=== PATIENT | female | born 2000 | race Caucasian/White ===

== ENCOUNTER 2018-04-02 15:00 | Emergency (ER) | payer BC, OTHER ==
--- NOTE | 2018-04-02 15:16 | EDM.PDOC ---
ED HPI GENERAL MEDICAL PROBLEM - General Chief Complaint: TECHNICAL ASSISTANCE CONSULTANT Problem Stated Complaint: PT SPOKE TO NURSE Time Seen by Provider: 04/02/18 15:07 - History of Present Illness INITIAL COMMENTS - FREE TEXT/NARRATIVE: HISTORY AND PHYSICAL: History of present illness: The patient is a 18-year-old female who is a one para 0 and presents with complaints of heavy vaginal bleeding that started approximately 2-1/2 hours ago requiring 3 pads. According to the patient she had a that was not progressing and had medication placed intravaginally, Cytotec, at [facility] on Friday. She was told that she would start bleeding heavily about 12 hours afterwards and she says that about 6 hours after the insertion of the medications she started having heavy bleeding with clots that lasted about 2 hours. She said that it then tapered off and Friday and Friday it was a light period which was very much like she was told it was going to progress. Today in the morning she had a normal day and then a 2-1/2 hours ago she started bleeding more heavily and having a lot of cramping. She has tried axpm-jyl-[id number] meds for the pain and says they are not working. She has felt lightheaded today but has no issues with passing out or blacking out and no chest pain shortness of breath fevers chills or other systemic complaints. She's concerned because she was told that all of the heavy bleeding should've happened on the first 24 hours and it has started to recur. She did not contact her provider at [facility] before coming here. Review of systems: As per history of present illness and below otherwise all systems reviewed and negative. Past medical history: As per history of present illness and as reviewed below otherwise noncontributory. Surgical history: As per history of present illness and as reviewed below otherwise noncontributory. Social history: No reported history of drug or alcohol abuse. Family history: As per history of present illness and as reviewed below otherwise noncontributory. Physical exam: General: Well-developed well-nourished petite female who is nontoxic and vital signs are reviewed by me. Patient is slightly tachycardic at 109 HEENT: Atraumatic, normocephalic, negative for conjunctival pallor or scleral icterus, mucous membranes moist, throat clear, neck supple, nontender, trachea midline. Lungs: Clear to auscultation, breath sounds equal bilaterally, chest nontender. Heart: S1S2, regular rhythm and slightly tachycardic rate on my evaluation no overt murmurs Abdomen: Soft, nondistended, minimal tenderness suprapubically without rebound or guarding NABS Negative for costovertebral tenderness. Pelvis: Deferred Genitourinary: External genitalia are within normal limits and upon placement of the speculum a copious amount of blood and some clots are visualized and after evacuation of this the cervix can be seen which has a steady trickle per os and a small clot at the os and is fingertip. The uterus is small and bulky approximately 6-8 weeks size and there is no adnexal tenderness Rectal: Deferred. Extremities: Atraumatic, negative for cords or calf pain. Neurovascular unremarkable. Neuro: Awake, alert, oriented. Cranial nerves II through XII unremarkable. Cerebellum unremarkable. Motor and sensory unremarkable throughout. Exam nonfocal. Diagnostics: CBC serum quantitative hCG pelvic ultrasound The patient's blood type is documented in the computer as A+ [employer]: IV fluids Toradol Please note that the patient's prior serum quantitative hCGs have been reviewed by me on March 17 of March 19 and March 26 with the last one being [phone] This case was discussed with Dr. brownlee at 1520 8 PM and she would like a repeat quantitative hCG and the pelvic ultrasound for retained products to be performed and to be recontacted 1737: Dr Brownlee was recontacted with testing results and would like me to give the patient a prescription for Methergine 0.2 mg every 6 hours for 4 doses and to call and schedule a follow-up appointment in the clinic. I advised the patient to push hydration rest and reasons to return to the ED Heart rate has improved with IV fluid hydration Impression: Continued vaginal bleeding post Cytotec stable Definitive disposition and diagnosis as appropriate pending reevaluation and review of above. Lower Abdomen Pain Score (Numeric/FACES): 8 - Related Data Allergies Allergy/AdvReac Type Severity Reaction Status Date / Time morphine Allergy Vomiting Verified 04/02/18 15:05 Home Meds: Home Meds . [No Known Home Meds] 09/27/15 [History] Vit #108/Iron/FA [ One Tablet] 1 tab DAILY 04/02/18 [History] Past Medical History Respiratory History: Reports: Asthma TECHNICAL ASSISTANCE CONSULTANT History: Reports: Other (See Below) Other TECHNICAL ASSISTANCE CONSULTANT History: false Psychiatric History: Reports: Anxiety - Past Surgical History HEENT Surgical History: Reports: Tonsillectomy Oncologic Surgical History: Reports: Other (See Below) Social & Family History - Family History Family Medical History: Noncontributory - Tobacco Use Smoking Status *Q: Never Smoker - Caffeine Use Caffeine Use: Reports: None - Recreational Drug Use Recreational Drug Use: No - Living Situation & Occupation Living situation: Reports: Single Occupation: Employed ED ROS GENERAL - Review of Systems Review Of Systems: ROS reveals no pertinent complaints other than HPI. ED EXAM, GENERAL - Physical Exam Exam: See Below (See dictation) Course - Vital Signs Last Recorded V/S: Last Vital Signs Temp 37.1 C 04/02/18 16:47 Pulse 94 04/02/18 16:47 Resp 18 04/02/18 16:47 BP 106/63 04/02/18 16:47 Pulse Ox 99 04/02/18 16:47 - Orders/Labs/Meds Orders: Active Orders 24 hr Category Date Time Status Transvaginal Non OB [US] Stat Exams 04/02/18 15:31 Taken Sodium Chloride 0.9% [Saline Flush] Med 04/02/18 15:30 Active 10 ml FLUSH ASDIRECTED PRN Sodium Chloride 0.9% [Saline Flush] Med 04/02/18 15:30 Active 2.5 ml FLUSH ASDIRECTED PRN Saline Lock Insert [OM.PC] Stat Oth 04/02/18 15:30 Ordered Medication Orders Sodium Chloride (Saline Flush) 10 ml FLUSH ASDIRECTED PRN PRN Reason: Keep Vein Open Sodium Chloride (Saline Flush) 2.5 ml FLUSH ASDIRECTED PRN PRN Reason: Keep Vein Open Labs: Laboratory Tests 04/02/18 04/02/18 Range/Units 16:20 16:20 WBC 7.78 (4.0-11.0) K/uL RBC 3.83 L (4.30-5.90) M/uL Hgb 11.3 L (12.0-16.0) g/dL Hct 33.1 L (36.0-46.0) % MCV 86.4 (80.0-98.0) fL MCH 29.5 (27.0-32.0) pg MCHC 34.1 (31.0-37.0) g/dL RDW Std Deviation 41.0 (28.0-62.0) fl RDW Coeff of Sameer 13 (11.0-15.0) % Plt Count 204 (150-400) K/uL MPV 12.80 H (7.40-12.00) fL Neut % (Auto) 63.3 (48.0-80.0) % Lymph % (Auto) 28.0 (16.0-40.0) % Harnett % (Auto) 6.2 (0.0-15.0) % Eos % (Auto) 2.2 (0.0-7.0) % Baso % (Auto) 0.3 (0.0-1.5) % Neut # (Auto) 4.9 (1.4-5.7) K/uL Lymph # (Auto) 2.2 (0.6-2.4) K/uL Harnett # (Auto) 0.5 (0.0-0.8) K/uL Eos # (Auto) 0.2 (0.0-0.7) K/uL Baso # (Auto) 0.0 (0.0-0.1) K/uL Nucleated RBC % 0.0 /100WBC Nucleated RBCs # 0 K/uL HCG, Quant 4691.0 mIU/mL Meds: Medications Generic Name Dose Route Start Last Admin Trade Name Freq PRN Reason Stop Dose Admin Sodium Chloride 10 ml 04/02/18 15:30 Saline Flush FLUSH ASDIRECTED PRN Keep Vein Open Sodium Chloride 2.5 ml 04/02/18 15:30 Saline Flush FLUSH ASDIRECTED PRN Keep Vein Open Discontinued Medications Generic Name Dose Route Start Last Admin Trade Name Freq PRN Reason Stop Dose Admin Sodium Chloride 1,000 mls @ 999 mls/hr 04/02/18 15:36 04/02/18 16:18 Normal Saline IV 04/02/18 16:36 999 mls/hr STAT ONE Administration Ketorolac Tromethamine 30 mg 04/02/18 15:31 04/02/18 16:18 Toradol IVPUSH 04/02/18 15:32 30 mg ONETIME ONE Administration Departure - Departure Time of Disposition: 17:43 Disposition: Home, Self-Care 01 Condition: Good Clinical Impression: Vaginal bleeding - Discharge Information Referrals: PCP,None [Primary Care Provider] - Forms: ED Department Discharge Additional Instructions: The following information is given to patients seen in the emergency department who are being discharged to home. This information is to outline your options for follow-up care. We provide all patients seen in our emergency department with a follow-up referral. The need for follow-up, as well as the timing and circumstances, are variable depending upon the specifics of your emergency department visit. If you don't have a primary care physician on staff, we will provide you with a referral. We always advise you to contact your personal physician following an emergency department visit to inform them of the circumstance of the visit and for follow-up with them and/or the need for any referrals to a consulting specialist. The emergency department will also refer you to a specialist when appropriate. This referral assures that you have the opportunity for followup care with a specialist. All of these measure are taken in an effort to provide you with optimal care, which includes your followup. Under all circumstances we always encourage you to contact your private physician who remains a resource for coordinating your care. When calling for followup care, please make the office aware that this follow-up is from your recent emergency room visit. If for any reason you are refused follow-up, please contact the [facility] emergency department at and ask to speak to the emergency department charge nurse. [facility]'s [address] [address] Please fill the prescription for Methergine that you have been given and take as directed. Expect heavy blood flow and some clots during the taking of this medication which should taper off. These contact her provider in the clinic at [facility] for further care and evaluation and return to ER as needed and as discussed - My Orders Last 24 Hours: My Active Orders 04/02/18 15:30 Sodium Chloride 0.9% [Saline Flush] 10 ml FLUSH ASDIRECTED PRN Sodium Chloride 0.9% [Saline Flush] 2.5 ml FLUSH ASDIRECTED PRN Saline Lock Insert [OM.PC] Stat 04/02/18 15:31 Transvaginal Non OB [US] Stat - Assessment/Plan Last 24 Hours: My Active Orders 04/02/18 15:30 Sodium Chloride 0.9% [Saline Flush] 10 ml FLUSH ASDIRECTED PRN Sodium Chloride 0.9% [Saline Flush] 2.5 ml FLUSH ASDIRECTED PRN Saline Lock Insert [OM.PC] Stat 04/02/18 15:31 Transvaginal Non OB [US] Stat
[2018-04-02] MEDS ORDERED: Sodium Chloride 0.9% 10 ML Syringe FLUSH PRN (15:30)
[2018-04-02] MEDS ORDERED: Sodium Chloride 0.9% 2.5 ML Syringe FLUSH PRN (15:30)
[2018-04-02] MEDS ORDERED: Ketorolac 30 MG/ML SDV IVPUSH ONE (15:31)
[2018-04-02] MEDS ORDERED: Sodium Chloride 0.9% 1,000 ML IV ONE (15:36)
[2018-04-02 16:48] VITALS: BP 106/63
--- NOTE | 2018-04-03 20:19 | US ---
EXAM DATE: 04/02/18 PATIENT'S AGE: 18 Patient: VAHID RAMOS Facility: [place], [place] Site . Site : 2000 Study: US Pelvis [id number] 4:16:16 PM Ordering Physician: Shante Odom Final Report: INDICATION: Bleeding following procedure. COMPARISON: None. TECHNIQUE: Transvaginal evaluation only. FINDINGS: Focal area which is heterogeneous in echotexture with debris which most likely reflects reflect a clot is noted in the lower uterine segment measuring 1.1 x 4.1 cm. The endometrium is thickened and heterogeneous. The ovaries are unremarkable. IMPRESSION: Probable clot in lower uterine segment. Dictated by Jackie Carson MD @ Apr 02 2018 4:39PM (Electronic Signature) Report Signed by Proxy. SHRAVAN
== END 2018-04-02 18:01 | disposition home or self-care (01) ==
LOC: MW.ED 15:00
DX: O46.90 Antepartum hemorrhage, unspecified, unspecified trimester (principal); Z88.5 Allergy status to narcotic agent; Z79.899 Other long term (current) drug therapy
CPT/HCPCS: 36415; 76830; 84702; 85025; 96361; 96374; 99284; J1885; J7040; 99283

== ENCOUNTER 2018-04-09 17:09 | Observation (INO) | payer BC, OTHER ==
[2018-04-09] MEDS ORDERED: Sodium Chloride 0.9% 2.5 ML Syringe FLUSH PRN (17:34)
[2018-04-09] MEDS ORDERED: Sodium Chloride 0.9% 10 ML Syringe FLUSH PRN (17:34)
[2018-04-09] MEDS ORDERED: Sodium Chloride 0.9% 1,000 ML IV ONE ×2 (17:35→18:35)
--- NOTE | 2018-04-09 17:52 | EDM.PDOC ---
ED HPI GENERAL MEDICAL PROBLEM - General Source of Information: Reports: Patient, Family History Limitations: Reports: No Limitations - History of Present Illness Onset: Today, Sudden Duration: Day(s): Location: Reports: Pelvis Quality: Reports: Ache, Same as Previous Episode Severity: Moderate Improves with: Reports: None Worsens with: Reports: None Associated Symptoms: Reports: No Other Symptoms, Weakness no pain Pain Score (Numeric/FACES): 0 - General Chief Complaint: [employer] Problem Stated Complaint: THINKS SHE HAD A CEIZER AT WORK Time Seen by Provider: 04/09/18 17:45 - History of Present Illness INITIAL COMMENTS - FREE TEXT/NARRATIVE: Dr. Frey dictating an addendum note as I'm familiar with this case and I saw this patient last week. I agree with history and physical as above and the patient that she was doing well until today when she started bleeding and had what sounds like a fainting/vasovagal event. On my evaluation there is tissue at the os which is very here and and is difficult to remove without significant traction. Dr Lawrence will come and evaluate the patient for further care. (Ilene Frey) HISTORY AND PHYSICAL: []18-year-old female presenting with concerns over passing out History of Present Illness: []1 week ago patient was in the emergency department after having received Cytotec in the [employer]EL [employer]END[employer] office. Bleeding had occurred for the last 24 hours then slowed down she returned because of increased bleeding. Patient was given Methergine and did take this medication through yesterday. Today when she was at work about 2:00 she noticed increased bleeding again. And called her mother for 4:43 pm after this she was found on the floor and increased bleeding. Patient was brought back to the examination room when she sat on the wheelchair there was "a gush of blood". Her mother cleaned up the wheelchair before was seen by any staff. Review of Systems: As per history of present illness and below otherwise all systems reviewed and negative. Past medical history: As per history of present illness and as reviewed below otherwise noncontributory. Surgical history: As per history of present illness and as reviewed below otherwise noncontributory. Social history: No reported history of drug or alcohol abuse. Family history: As per history of present illness and as reviewed below otherwise noncontributory. Physical exam: Alert and oriented female answering questions appropriately in full sentences without any shortness of breath. She walked to the bathroom and urinated. A sample was obtained. He is nontoxic in appearance. HEENT: Atraumatic, normocehpalic, pupils reactive, negative for conjunctival pallor or scleral icterus, mucous membranes moist, throat clear, neck supple, nontender, trachea midline. Lungs: Clear to auscultation, breath sounds equal bilaterally, chest non tender. Heart: S1S2, regular, negative for clicks, rubs, or JVD. Abdomen: Soft, nondistended, nontender. Negative for masses or hepatossplenmegaly. Negative for costovertebral tenderness. Pelvis: Stable nontender. Genitourinary: Deferred. Rectal: Deferred Extremities: Atraumatic, negative for cords or calf pain. Neurovascular unremarkable. Neuro: Awake, alert, oriented. Cranial nerves II through XII unremarkable. Cerebellum unremarkable. Motor and sensory unremarkable throughout. Exam nonfocal. Pelvic examination several clots were evacuated from the vaginal vault the oss , of the cervix has contents present a small amount removed with ring forceps however there is quite a bit of tension. Dr. Frey is at bedside and was unable to remove the tissue. Dr. Lawrence has been notified of this patient. Dr. Frey has given report to Dr. Lawrence. Dr. Lawrence has examined the patient and evacuated some of the contents, an us obtained and reviewed by Dr. Lawrence who has asked for OR crew to be contacted for a D & C. Diagnostics: []cbc, cmp, ua, urine culture, prolactin, hcg quantitative Therapeutics: []IV fluid Impression: []Retained products of conception Plan: []admit to surgery ( same day) Definitive disposition and diagnosis as appropriate pending reevaluation and review of above. (Kelsie Cruz) - Related Data Allergies Allergy/AdvReac Type Severity Reaction Status Date / Time morphine Allergy Vomiting Verified 04/09/18 17:36 Home Meds: Home Meds Vit #108/Iron/FA [ One Tablet] 1 tab DAILY 04/02/18 [History] Past Medical History HEENT History: Reports: None Cardiovascular History: Reports: None Respiratory History: Reports: Asthma Gastrointestinal History: Reports: None Genitourinary History: Reports: None [employer]EL [employer] TENDER History: Reports: , Other (See Below) Other LABEL [employer] TENDER History: false Musculoskeletal History: Reports: None Neurological History: Reports: None Psychiatric History: Reports: Anxiety Endocrine/Metabolic History: Reports: None Hematologic History: Reports: None Immunologic History: Reports: None Oncologic (Cancer) History: Reports: None Dermatologic History: Reports: None - Past Surgical History Head Surgeries/Procedures: Reports: None HEENT Surgical History: Reports: Tonsillectomy Cardiovascular Surgical History: Reports: None Respiratory Surgical History: Reports: None GI Surgical History: Reports: None Female Surgical History: Reports: None Endocrine Surgical History: Reports: None Neurological Surgical History: Reports: None Musculoskeletal Surgical History: Reports: None Oncologic Surgical History: Reports: Other (See Below) Social & Family History - Family History Family Medical History: Noncontributory - Tobacco Use Smoking Status *Q: Current Every Day Smoker Years of Tobacco use: 2 Packs/Tins Daily: 1 - Caffeine Use Caffeine Use: Reports: Soda - Recreational Drug Use Recreational Drug Use: No - Living Situation & Occupation Living situation: Reports: Single Occupation: Employed ED ROS GENERAL - Review of Systems Review Of Systems: ROS reveals no pertinent complaints other than HPI. ED EXAM - Physical Exam Exam: See Below (see dictation) - Vital Signs Last Recorded V/S: Last Vital Signs Temp 37.3 C 04/09/18 20:41 Pulse 127 H 04/09/18 20:41 Resp 18 04/09/18 20:41 BP 115/61 04/09/18 20:41 Pulse Ox 100 04/09/18 20:41 - Orders/Labs/Meds Orders: Active Orders 24 hr Category Date Time Status Admission Status [Patient Status] [ADT] Routine ADT 04/09/18 20:18 Active Notify Provider Consults [RC] ASDIRECTED Care 04/09/18 18:32 Active Consult to Physician [CONS] Stat Cons 04/09/18 18:32 Active OB Transvaginal [US] Stat Exams 04/09/18 19:08 Taken CULTURE URINE [RM] Stat Lab 04/09/18 17:34 Ordered RED BLOOD CELLS LP [BBK] Stat Lab 04/09/18 20:20 Received TYPE AND SCREEN [BBK] Stat Lab 04/09/18 20:20 Received UA W/MICROSCOPIC [URIN] Stat Lab 04/09/18 17:34 Ordered Sodium Chloride 0.9% [Saline Flush] Med 04/09/18 17:34 Active 10 ml FLUSH ASDIRECTED PRN Sodium Chloride 0.9% [Saline Flush] Med 04/09/18 17:34 Active 2.5 ml FLUSH ASDIRECTED PRN Saline Lock Insert [OM.PC] Stat Ot 04/09/18 17:34 Ordered Transfuse Red Blood Cells [COMM] Stat Ot 04/09/18 20:36 Ordered Medication Orders Sodium Chloride (Saline Flush) 10 ml FLUSH ASDIRECTED PRN PRN Reason: Keep Vein Open Sodium Chloride (Saline Flush) 2.5 ml FLUSH ASDIRECTED PRN PRN Reason: Keep Vein Open Labs: Laboratory Tests 04/09/18 04/09/18 04/09/18 Range/Units 17:34 17:56 17:56 WBC 8.39 (4.0-11.0) K/uL RBC 3.57 L (4.30-5.90) M/uL Hgb 10.5 L (12.0-16.0) g/dL Hct 30.6 L (36.0-46.0) % MCV 85.7 (80.0-98.0) fL MCH 29.4 (27.0-32.0) pg MCHC 34.3 (31.0-37.0) g/dL RDW Std Deviation 39.4 (28.0-62.0) fl RDW Coeff of Sameer 13 (11.0-15.0) % Plt Count 246 (150-400) K/uL MPV 12.10 H (7.40-12.00) fL Neut % (Auto) 76.5 (48.0-80.0) % Lymph % (Auto) 18.0 (16.0-40.0) % [place] % (Auto) 4.3 (0.0-15.0) % Eos % (Auto) 1.0 (0.0-7.0) % Baso % (Auto) 0.2 (0.0-1.5) % Neut # (Auto) 6.4 H (1.4-5.7) K/uL Lymph # (Auto) 1.5 (0.6-2.4) K/uL [place] # (Auto) 0.4 (0.0-0.8) K/uL Eos # (Auto) 0.1 (0.0-0.7) K/uL Baso # (Auto) 0.0 (0.0-0.1) K/uL Nucleated RBC % 0.0 /100WBC Nucleated RBCs # 0 K/uL Sodium 137 (136-145) mmol/L Potassium 3.6 (3.5-5.1) mmol/L Chloride 102 (98-107) mmol/L Carbon Dioxide 26.2 (21.0-32.0) mmol/L BUN 7 (7.0-18.0) mg/dL Creatinine 0.8 (0.6-1.0) mg/dL Est Cr Clr Drug Dosing 83.54 mL/min Estimated GFR (MDRD) > 60.0 ml/min Glucose 113 H (74-106) mg/dL Calcium 8.9 (8.5-10.1) mg/dL Total Bilirubin 0.2 (0.2-1.0) mg/dL AST 19 (15-37) IU/L ALT 26 (14-63) IU/L Alkaline Phosphatase 74 (46-116) U/L Total Protein 7.2 (6.4-8.2) g/dL Albumin 4.0 (3.4-5.0) g/dL Globulin 3.2 (2.0-3.5) g/dL Albumin/Globulin Ratio 1.3 (1.3-2.8) Prolactin 52 H (0-27) ng/mL HCG, Quant 2764.0 mIU/mL Urine Color RED Urine Appearance CLOUDY Urine pH 7.0 (5.0-8.0) Ur Specific [place] 1.025 (1.001-1.035) Urine Protein >=300 (NEGATIVE) mg/dL Urine Glucose (UA) 100 H (NEGATIVE) mg/dL Urine Ketones NEGATIVE (NEGATIVE) mg/dL Urine Occult Blood LARGE H (NEGATIVE) Urine Nitrite POSITIVE H (NEGATIVE) Urine Bilirubin NEGATIVE (NEGATIVE) Urine Urobilinogen 0.2 (<2.0) EU/dL Ur Leukocyte Esterase NEGATIVE (NEGATIVE) Urine RBC TOO BERRY (0-2/HPF) Urine WBC 2-4 (0-5/HPF) Ur Epithelial Cells FEW (NONE-FEW) Urine Bacteria FEW (NEGATIVE) 04/09/18 Range/Units 20:20 WBC 13.26 H (4.0-11.0) K/uL RBC 2.75 L (4.30-5.90) M/uL Hgb 8.2 L (12.0-16.0) g/dL Hct 23.6 L (36.0-46.0) % MCV 85.8 (80.0-98.0) fL MCH 29.8 (27.0-32.0) pg MCHC 34.7 (31.0-37.0) g/dL RDW Std Deviation 39.4 (28.0-62.0) fl RDW Coeff of Sameer 13 (11.0-15.0) % Plt Count 212 (150-400) K/uL MPV 11.70 (7.40-12.00) fL Neut % (Auto) 85.6 H (48.0-80.0) % Lymph % (Auto) 10.8 L (16.0-40.0) % [place] % (Auto) 3.2 (0.0-15.0) % Eos % (Auto) 0.2 (0.0-7.0) % Baso % (Auto) 0.2 (0.0-1.5) % Neut # (Auto) 11.4 H (1.4-5.7) K/uL Lymph # (Auto) 1.4 (0.6-2.4) K/uL [place] # (Auto) 0.4 (0.0-0.8) K/uL Eos # (Auto) 0.0 (0.0-0.7) K/uL Baso # (Auto) 0.0 (0.0-0.1) K/uL Nucleated RBC % 0.0 /100WBC Nucleated RBCs # 0 K/uL Sodium (136-145) mmol/L Potassium (3.5-5.1) mmol/L Chloride (98-107) mmol/L Carbon Dioxide (21.0-32.0) mmol/L BUN (7.0-18.0) mg/dL Creatinine (0.6-1.0) mg/dL Est Cr Clr Drug Dosing mL/min Estimated GFR (MDRD) ml/min Glucose (74-106) mg/dL Calcium (8.5-10.1) mg/dL Total Bilirubin (0.2-1.0) mg/dL AST (15-37) IU/L ALT (14-63) IU/L Alkaline Phosphatase (46-116) U/L Total Protein (6.4-8.2) g/dL Albumin (3.4-5.0) g/dL Globulin (2.0-3.5) g/dL Albumin/Globulin Ratio (1.3-2.8) Prolactin (0-27) ng/mL HCG, Quant mIU/mL Urine Color Urine Appearance Urine pH (5.0-8.0) Ur Specific [place] (1.001-1.035) Urine Protein (NEGATIVE) mg/dL Urine Glucose (UA) (NEGATIVE) mg/dL Urine Ketones (NEGATIVE) mg/dL Urine Occult Blood (NEGATIVE) Urine Nitrite (NEGATIVE) Urine Bilirubin (NEGATIVE) Urine Urobilinogen (<2.0) EU/dL Ur Leukocyte Esterase (NEGATIVE) Urine RBC (0-2/HPF) Urine WBC (0-5/HPF) Ur Epithelial Cells (NONE-FEW) Urine Bacteria (NEGATIVE) Meds: Medications Generic Name Dose Route Start Last Admin Trade Name Freq PRN Reason Stop Dose Admin Sodium Chloride 10 ml 04/09/18 17:34 Saline Flush FLUSH ASDIRECTED PRN Keep Vein Open Sodium Chloride 2.5 ml 04/09/18 17:34 Saline Flush FLUSH ASDIRECTED PRN Keep Vein Open Discontinued Medications Generic Name Dose Route Start Last Admin Trade Name Freq PRN Reason Stop Dose Admin Fentanyl Confirm 04/09/18 20:54 Sublimaze Administered 04/09/18 20:55 Dose 250 mcg .ROUTE .STK-MED ONE Sodium Chloride 1,000 mls @ 999 mls/hr 04/09/18 17:35 04/09/18 17:53 Normal Saline IV 04/09/18 18:35 999 mls/hr STAT ONE Administration Sodium Chloride 1,000 mls @ 999 mls/hr 04/09/18 18:35 04/09/18 18:39 Normal Saline IV 04/09/18 19:35 999 mls/hr STAT ONE Administration Doxycycline Hyclate 200 mg/ 250 mls @ 125 mls/hr 04/09/18 19:11 04/09/18 19: 28 Dextrose/Water IV 04/09/18 21:10 125 mls/hr ONETIME ONE Administration Lidocaine Confirm 04/09/18 20:53 Xylocaine-Mpf 2% Administered 04/09/18 20:54 Dose 5 ml .ROUTE .STK-MED ONE Midazolam HCl Confirm 04/09/18 20:54 Versed 1 Mg/Ml Administered 04/09/18 20:55 Dose 2 mg .ROUTE .STK-MED ONE Ondansetron HCl Confirm 04/09/18 20:53 Zofran Administered 04/09/18 20:54 Dose 4 mg .ROUTE .STK-MED ONE Propofol Confirm 04/09/18 20:54 Diprivan 20 Ml Administered 04/09/18 20:55 Dose 200 mg .ROUTE .STK-MED ONE Rocuronium [place] Confirm 04/09/18 20:53 Zemuron Administered 04/09/18 20:54 Dose 100 mg .ROUTE .STK-MED ONE Succinylcholine Chloride Confirm 04/09/18 20:53 Quelicin Administered 04/09/18 20:54 Dose 200 mg .ROUTE .STK-MED ONE Departure - Departure Time of Disposition: 21:14 - Departure Disposition: Still A Patient 30 Clinical Impression: Incomplete , Retained products of conception after miscarriage - My Orders Last 24 Hours: My Active Orders 04/09/18 17:34 CULTURE URINE [RM] Stat UA W/MICROSCOPIC [URIN] Stat Sodium Chloride 0.9% [Saline Flush] 10 ml FLUSH ASDIRECTED PRN Sodium Chloride 0.9% [Saline Flush] 2.5 ml FLUSH ASDIRECTED PRN Saline Lock Insert [OM.PC] Stat 04/09/18 20:18 Admission Status [Patient Status] [ADT] Routine - Assessment/Plan Last 24 Hours: My Active Orders 04/09/18 17:34 CULTURE URINE [RM] Stat UA W/MICROSCOPIC [URIN] Stat Sodium Chloride 0.9% [Saline Flush] 10 ml FLUSH ASDIRECTED PRN Sodium Chloride 0.9% [Saline Flush] 2.5 ml FLUSH ASDIRECTED PRN Saline Lock Insert [OM.PC] Stat 04/09/18 20:18 Admission Status [Patient Status] [ADT] Routine
[2018-04-09 18:46] LABS: CHLORIDE,CL 102 mmol/L (98-107); SODIUM,NA 137 mmol/L (136-145)
[2018-04-09] MEDS ORDERED: Doxycycline 200 MG in Dextrose 5% in Water 250 ML IV ONE ×2 (19:11)
--- NOTE | 2018-04-09 20:36 | PCM.PREANE ---
Preanesthetic Assessment - Anesthesia/Transfusion/Family Hx Anesthesia History: Prior Anesthesia Without Reaction Family History of Anesthesia Reaction: No Transfusion History: No Prior Transfusion(s) - Review of Systems General: Weakness Pulmonary: No Symptoms Cardiovascular: Lightheadedness Gastrointestinal: No Symptoms Neurological: No Symptoms Other: Reports: None - Physical Assessment NPO Status Date: 04/09/18 NPO Status Time: 13:00 O2 Sat by Pulse Oximetry: 99 Respiratory Rate: 18 Vital Signs: Last Vital Signs Temp 99 F 04/09/18 19:59 Pulse 106 H 04/09/18 19:59 Resp 18 04/09/18 19:59 BP 92/65 04/09/18 19:59 Pulse Ox 99 04/09/18 19:59 Height: 5 ft 2 in Weight: 47.174 kg ASA Class: 2E Mental Status: Alert & Oriented x3 Airway Class: Mallampati = 2 Dentition: Reports: Normal Dentition Thyro-Mental Finger Breadths: 3 Mouth Opening Finger Breadths: 3 ROM/Head Extension: Full Lungs: Clear to Auscultation, Normal Respiratory Effort Cardiovascular: Regular Rhythm, Tachycardia - Lab Values: Laboratory Last Values WBC 13.26 K/uL (4.0-11.0) H 04/09/18 20:20 RBC 2.75 M/uL (4.30-5.90) L 04/09/18 20:20 Hgb 8.2 g/dL (12.0-16.0) L 04/09/18 20:20 Hct 23.6 % (36.0-46.0) L 04/09/18 20:20 MCV 85.8 fL (80.0-98.0) 04/09/18 20:20 MCH 29.8 pg (27.0-32.0) 04/09/18 20:20 MCHC 34.7 g/dL (31.0-37.0) 04/09/18 20:20 RDW Std Deviation 39.4 fl (28.0-62.0) 04/09/18 20:20 RDW Coeff of Sameer 13 % (11.0-15.0) 04/09/18 20:20 Plt Count 212 K/uL (150-400) 04/09/18 20:20 MPV 11.70 fL (7.40-12.00) 04/09/18 20:20 Neut % (Auto) 85.6 % (48.0-80.0) H 04/09/18 20:20 Lymph % (Auto) 10.8 % (16.0-40.0) L 04/09/18 20:20 [place] % (Auto) 3.2 % (0.0-15.0) 04/09/18 20:20 Eos % (Auto) 0.2 % (0.0-7.0) 04/09/18 20:20 Baso % (Auto) 0.2 % (0.0-1.5) 04/09/18 20:20 Neut # (Auto) 11.4 K/uL (1.4-5.7) H 04/09/18 20:20 Lymph # (Auto) 1.4 K/uL (0.6-2.4) 04/09/18 20:20 [place] # (Auto) 0.4 K/uL (0.0-0.8) 04/09/18 20:20 Eos # (Auto) 0.0 K/uL (0.0-0.7) 04/09/18 20:20 Baso # (Auto) 0.0 K/uL (0.0-0.1) 04/09/18 20:20 Nucleated RBC % 0.0 /100WBC 04/09/18 20:20 Nucleated RBCs # 0 K/uL 04/09/18 20:20 Sodium 137 mmol/L (136-145) 04/09/18 17:56 Potassium 3.6 mmol/L (3.5-5.1) 04/09/18 17:56 Chloride 102 mmol/L (98-107) 04/09/18 17:56 Carbon Dioxide 26.2 mmol/L (21.0-32.0) 04/09/18 17:56 BUN 7 mg/dL (7.0-18.0) 04/09/18 17:56 Creatinine 0.8 mg/dL (0.6-1.0) 04/09/18 17:56 Est Cr Clr Drug Dosing 83.54 mL/min 04/09/18 17:56 Estimated GFR (MDRD) > 60.0 ml/min 04/09/18 17:56 Glucose 113 mg/dL (74-106) H 04/09/18 17:56 Calcium 8.9 mg/dL (8.5-10.1) 04/09/18 17:56 Total Bilirubin 0.2 mg/dL (0.2-1.0) 04/09/18 17:56 AST 19 IU/L (15-37) 04/09/18 17:56 ALT 26 IU/L (14-63) 04/09/18 17:56 Alkaline Phosphatase 74 U/L (46-116) 04/09/18 17:56 Total Protein 7.2 g/dL (6.4-8.2) 04/09/18 17:56 Albumin 4.0 g/dL (3.4-5.0) 04/09/18 17:56 Globulin 3.2 g/dL (2.0-3.5) 04/09/18 17:56 Albumin/Globulin Ratio 1.3 (1.3-2.8) 04/09/18 17:56 Prolactin 52 ng/mL (0-27) H 04/09/18 17:56 HCG, Quant 2764.0 mIU/mL 04/09/18 17:56 Urine Color RED 04/09/18 17:34 Urine Appearance CLOUDY 04/09/18 17:34 Urine pH 7.0 (5.0-8.0) 04/09/18 17:34 Ur Specific [place] 1.025 (1.001-1.035) 04/09/18 17:34 Urine Protein >=300 mg/dL (NEGATIVE) 04/09/18 17:34 Urine Glucose (UA) 100 mg/dL (NEGATIVE) H 04/09/18 17:34 Urine Ketones NEGATIVE mg/dL (NEGATIVE) 04/09/18 17:34 Urine Occult Blood LARGE (NEGATIVE) H 04/09/18 17:34 Urine Nitrite POSITIVE (NEGATIVE) H 04/09/18 17:34 Urine Bilirubin NEGATIVE (NEGATIVE) 04/09/18 17:34 Urine Urobilinogen 0.2 EU/dL (<2.0) 04/09/18 17:34 Ur Leukocyte Esterase NEGATIVE (NEGATIVE) 04/09/18 17:34 Urine RBC TOO BERRY (0-2/HPF) 04/09/18 17:34 Urine WBC 2-4 (0-5/HPF) 04/09/18 17:34 Ur Epithelial Cells FEW (NONE-FEW) 04/09/18 17:34 Urine Bacteria FEW (NEGATIVE) 04/09/18 17:34 - Allergies Allergies/Adverse Reactions: Allergies Allergy/AdvReac Type Severity Reaction Status Date / Time morphine Allergy Vomiting Verified 04/09/18 17:36 - Acknowledgements Anesthesia Type Planned: General Anesthesia Pt an Appropriate Candidate for the Planned Anesthesia: Yes Alternatives and Risks of Anesthesia Discussed w Pt/Guardian: Yes Pt/Guardian Understands and Agrees with Anesthesia Plan: Yes PreAnesthesia Questionnaire HEENT History: Reports: None Cardiovascular History: Reports: Syncope (04/09/18 this admission) Respiratory History: Reports: Asthma, Other (See Below) (Vaping) Gastrointestinal History: Reports: None Genitourinary History: Reports: None [employer] History: Reports: , Other (See Below) Other OB/BYN History: false Musculoskeletal History: Reports: None Neurological History: Reports: None Psychiatric History: Reports: Anxiety Endocrine/Metabolic History: Reports: None Hematologic History: Reports: None Immunologic History: Reports: None Oncologic (Cancer) History: Reports: None Dermatologic History: Reports: None - Infectious Disease History Infectious Disease History: Reports: None - Past Surgical History Head Surgeries/Procedures: Reports: None HEENT Surgical History: Reports: Tonsillectomy Cardiovascular Surgical History: Reports: None Respiratory Surgical History: Reports: None GI Surgical History: Reports: None Female Surgical History: Reports: None Endocrine Surgical History: Reports: None Neurological Surgical History: Reports: None Musculoskeletal Surgical History: Reports: None Oncologic Surgical History: Reports: Other (See Below) Dermatological Surgical History: Reports: None - SUBSTANCE USE Smoking Status *Q: Current Every Day Smoker Tobacco Use Within Last Twelve Months: Other (See Below) (Vaping DAILY Multiple times per day) Recreational Drug Use History: No - HOME MEDS Home Medications: Home Meds Vit #108/Iron/FA [ One Tablet] 1 tab DAILY 04/02/18 [History] - CURRENT (IN HOUSE) MEDS Current Meds: Current Medications Doxycycline Hyclate 200 mg/ (Dextrose/Water) 250 mls @ 125 mls/hr IV ONETIME ONE Stop: 04/09/18 21:10 Last Admin: 04/09/18 19:28 Dose: 125 mls/hr Sodium Chloride (Saline Flush) 10 ml FLUSH ASDIRECTED PRN PRN Reason: Keep Vein Open Sodium Chloride (Saline Flush) 2.5 ml FLUSH ASDIRECTED PRN PRN Reason: Keep Vein Open Discontinued Medications Sodium Chloride (Normal Saline) 1,000 mls @ 999 mls/hr IV STAT ONE Stop: 04/09/18 18:35 Last Admin: 04/09/18 17:53 Dose: 999 mls/hr Sodium Chloride (Normal Saline) 1,000 mls @ 999 mls/hr IV STAT ONE Stop: 04/09/18 19:35 Last Admin: 04/09/18 18:39 Dose: 999 mls/hr
[2018-04-09] MEDS ORDERED: Succinylcholine 200 MG/10 ML MDV ONE (20:53)
[2018-04-09] MEDS ORDERED: Ondansetron 4 MG/2 ML SDV ONE (20:53)
[2018-04-09] MEDS ORDERED: Rocuronium 10 MG/ML 10 ML Syringe ONE (20:53)
[2018-04-09] MEDS ORDERED: Lidocaine 2% 5 ML SDV ONE (20:53)
[2018-04-09] MEDS ORDERED: Midazolam 1 MG/ML 2 ML SDV ONE (20:54)
[2018-04-09] MEDS ORDERED: Propofol 200 MG/20 ML SDV ONE (20:54)
[2018-04-09] MEDS ORDERED: fentaNYL 250 MCG/5 ML SDV ONE (20:54)
[2018-04-09] MEDS ORDERED: Phenylephrine/Normal Saline 100 MCG/ML 10 ML Syringe ONE (21:16)
[2018-04-09] MEDS ORDERED: ePHEDrine 50 MG/ML SDV ONE (21:18)
[2018-04-09] MEDS ORDERED: Methylergonovine 0.2 MG/1 ML Amp ONE (21:32)
[2018-04-09] MEDS ORDERED: Acetaminophen/oxyCODONE 325-5 MG Tab PO PRN (21:57)
[2018-04-09] MEDS ORDERED: fentaNYL 100 MCG/2 ML SDV IVPUSH PRN (21:59)
[2018-04-09] MEDS ORDERED: Lactated Ringers 1,000 ML IV SCH (22:00)
--- NOTE | 2018-04-09 22:05 | PCM.OPNOTE ---
- General Post-Op/Procedure Note Date of Surgery/Procedure: 04/09/18 Operative Procedure(s): Suction Dilatation with curettage Findings: Uterus 6 weeks size, cervix 1cm dilated, moderate amount of products of conception evacuated. Pre Op Diagnosis: Retained products of conception Post-Op Diagnosis: Same Anesthesia Technique: General ET Tube Primary Surgeon: Ary Lawrence Pathology: POC Fluid Replacement, Intraop: 1,250 (Including 1 PRBC) EBL in mLs: 100 Complications: None Condition: Fair
[2018-04-09 22:19] VITALS: BP 114/57
--- NOTE | 2018-04-09 22:21 | PCM.POSTAN ---
POST ANESTHESIA ASSESSMENT - MENTAL STATUS Mental Status: Alert, Oriented - VITAL SIGNS Pulse Rate: 120 SaO2: 94 Resp Rate: 14 - RESPIRATORY Respiratory Status: Respiratory Rate WNL, Airway Patent, O2 Saturation Stable - CARDIOVASCULAR CV Status: Pulse Rate WNL, Blood Pressure Stable - GASTROINTESTINAL GI Status: No Symptoms - PAIN Pain Score: 0 - POST OP HYDRATION Hydration Status: Adequate & Stable
--- NOTE | 2018-04-09 22:22 | PCM48HPAN ---
Post Anesthesia Note - EVALUATION WITHIN 48HRS OF ANESTHETIC Vital Signs in Normal Range: Yes Patient Participated in Evaluation: Yes Respiratory Function Stable: Yes Airway Patent: Yes Cardiovascular Function Stable: Yes Hydration Status Stable: Yes Pain Control Satisfactory: Yes Nausea and Vomiting Control Satisfactory: Yes Mental Status Recovered: Yes Pulse Rate: 120 Resp Rate: 14
--- NOTE | 2018-04-10 05:21 | OR ---
SURGEON: Ary Lawrence MD DATE OF PROCEDURE: 04/09/2018 PREOPERATIVE DIAGNOSIS: Retained products of conception following medical management for missed . POSTOPERATIVE DIAGNOSIS: Retained products of conception following medical management for missed . PROCEDURE: Suction, dilatation, and curettage. ANESTHESIA: General endotracheal. ESTIMATED BLOOD LOSS: 100 mL. COMPLICATIONS: None. DISPOSITION: Stable to recovery room. FINDINGS: Examination under anesthesia revealed an open cervical os approximately 1 cm dilated. The uterus was about 6 weeks' size, mobile with no adnexal masses palpable. Minimal amount of bleeding. BRIEF HISTORY: The patient is a 18-year-old primigravida, who underwent medical management for a blighted ovum approximately 10 days ago. The patient presented to the ER today the second time within the last 7 days with increase in vaginal bleeding, soaking through her panty liners every 30 minutes. Denied abdominal cramps or pain. Products of conception were retrieved from the cervical os at the ER with approximately 50 mL of clotted blood in the vaginal vault. Followup sonogram revealed retained products of conception with blood clots within the endometrium cavity. Management options were discussed and recommended surgical management and the patient accepted risks including, but not limited to infection, bleeding, uterine perforation, and possibly Asherman syndrome were explained to the patient. The patient's vital signs revealed rising heart rates with low blood pressure and it seemed that she had lost a significant amount of blood between her presentations while in the ER. She was consented for blood transfusion. Appropriate consent was obtained for the surgery. The patient received doxycycline 200 mg IV. PROCEDURE IN DETAIL: She was taken to the operating room, where she received general anesthesia without difficulty. After adequate level of anesthesia, she was placed in dorsal lithotomy position, prepped and draped in the usual sterile fashion. The bladder was emptied. Examination under anesthesia revealed the aforementioned findings. was approximately 1 cm dilated and using a size 8 curved cannula, the products of conception and moderate amount of were retrieved. Thereafter, gentle sharp curettage was performed with a large curette until grittiness of the uterus was felt. The [place]is clamp was removed from the anterior lip of the cervix. The area was found to be hemostatic. All the instruments were removed from the vagina. Sponge, lap, and instrument counts were correct at the end of the procedure. The patient tolerated the procedure well and was taken to the recovery room in a stable condition. IV fluids that were given in total was 800 mg and she was transfused one packed red blood cells intraoperatively. HOLGER CARLISLE /[id number]
--- NOTE | 2018-04-13 10:33 | US ---
EXAM DATE: 04/09/18 PATIENT'S AGE: 18 Patient: VAHID RAMOS Facility: [facility] Site . Site : 1998 Study: US-OB Pelvis [id number] 7:53:17 PM Ordering Physician: Doctor Glez Final Report: Indication: Evaluate for retained products of conception. PELVIC ULTRASOUND Technique: Multiple transvaginal sonographic images of the pelvis were performed. Comparison: 04/02/2018 pelvic ultrasound. Findings: The uterus is normal in size and contour, measuring 6.4 x 2.9 x 3.4 cm. The endometrium measures 11 millimeters in thickness and is prominently heterogeneous. There is a suggestion of color Doppler blood flow within the heterogeneous endometrium, suspicious for retained products of conception. The ovaries appear normal bilaterally. Color and spectral Doppler blood flow is noted in both ovaries. No adnexal masses are evident. No significant free pelvic fluid is identified. IMPRESSION: Heterogeneous thickening of the endometrium with suggestion of vascular flow, concerning for retained products of conception. LASHAWN DAMIAN MD [employer] [facility] [employer] Dictated by Andrew Damian MD @ 04/09/2018 8:04:39 PM Dictated by: Andrew Damian MD @ 04/09/2018 20:05:34 Signed by: Andrew Damian MD @04/09/2018 8:05:34 PM (Electronic Signature) Report Signed by Proxy. [facility]
== END 2018-04-10 | disposition home or self-care (01) ==
LOC: MW.ED 17:09 → MW.SDS 20:12 → MW.MS 21:58
PROVIDERS: ADMIT Obstetrics & Gynecology; ATTEND Obstetrics & Gynecology
DX: O03.4 Incomplete spontaneous abortion without complication (principal); O99.519 Diseases of the respiratory system complicating pregnancy, unspecified trimester; J45.909 Unspecified asthma, uncomplicated; O99.340 Other mental disorders complicating pregnancy, unspecified trimester; F41.9 Anxiety disorder, unspecified; O99.330 Smoking (tobacco) complicating pregnancy, unspecified trimester; F17.210 Nicotine dependence, cigarettes, uncomplicated; Z79.899 Other long term (current) drug therapy; Z88.5 Allergy status to narcotic agent
CPT/HCPCS: 36415; 59812; 76817; 80053; 81001; 84146; 84702; 85025; 87086; 96361; 96365; 96366; 99285; A9270; J0330; J2250; J2370; J2405; J2704; J3010; J3490; J7040; J7060; P9016; J2210

== ENCOUNTER 2018-11-18 13:42 | Emergency (ER) | payer BC, OTHER ==
[2018-11-18] MEDS ORDERED: Sodium Chloride 0.9% 1,000 ML IV ONE (14:27)
--- NOTE | 2018-11-18 14:27 | EDM.PDOC ---
ED HPI GENERAL MEDICAL PROBLEM - General Chief Complaint: SOCK FOLDER Problem Stated Complaint: BLEEDING AND PAIN WITH Time Seen by Provider: 11/18/18 13:43 Source of Information: Reports: Patient History Limitations: Reports: No Limitations - History of Present Illness INITIAL COMMENTS - FREE TEXT/NARRATIVE: HISTORY AND PHYSICAL: History of present illness: Patient is a 18-year-old female who presents to the ED today with concern of vaginal bleeding and abdominal cramping and early . Patient states she had a prior miscarriage back in March with similar symptoms as now. She states at that time, she came into the ED and had to have a blood transfusion an emergency D&C. She states she is in today with concern of similar symptoms. She states she had a positive test one week ago. She states she started to begin bleeding last night and has noticed the bleeding has become heavier today. She states compared to last time, the bleeding is much less. She states she is wearing one pad from the beginning of this morning has not had to change it. Patient states she is currently on a control pill and has recently undergone change in the type of control and the hormone content. Patient denies fever, chills, chest pain, shortness of breath, or cough. Denies headache, neck stiff ness, change in vision, syncope, or near syncope. Denies nausea, vomiting, diarrhea, constipation, or dysuria. Has not noted any blood in urine or stool. Patient has been eating and drinking appropriately. Review of systems: As per history of present illness and below otherwise all systems reviewed and negative. Past medical history: As per history of present illness and as reviewed below otherwise noncontributory. Surgical history: As per history of present illness and as reviewed below otherwise noncontributory. Social history: See social history for further information Family history: As per history of present illness and as reviewed below otherwise noncontributory. Physical exam: General: Patient is alert, oriented, and in no acute distress. Patient sitting comfortably on exam table. HEENT: Atraumatic, normocephalic, pupils equal and reactive bilaterally, negative for conjunctival pallor or scleral icterus, mucous membranes moist, TMs normal bilaterally, throat clear, neck supple, nontender, trachea midline. No drooling or trismus noted. No meningeal signs. No hot potato voice noted. Lungs: Clear to auscultation, breath sounds equal bilaterally, chest nontender. Heart: S1S2, regular rate and rhythm without overt murmur Abdomen: Soft, nondistended, nontender. Negative for masses or hepatosplenomegaly. Negative for costovertebral tenderness. Pelvis: Stable nontender. Genitourinary: Deferred. Rectal: Deferred. Skin: Intact, warm, dry. No lesions or rashes noted. Extremities: Atraumatic, negative for cords or calf pain. Neurovascular unremarkable. Neuro: Awake, alert, oriented. Cranial nerves II through XII unremarkable. Cerebellum unremarkable. Motor and sensory unremarkable throughout. Exam nonfocal. Notes: Discussed results with patient the need to follow-up with her primary care provider or SOCK FOLDER. Supportive care measures were reviewed and discussed. Voices understanding and is agreeable to plan of care. Denies any further questions or concerns at this time. Diagnostics: CBC, CMP, UA, Uhcg, hcg quant, Rh/blood type, TVUS Therapeutics: Saline Prescription: None Impression: Abnormal uterine bleeding Plan: 1. You can alternate Tylenol and ibuprofen as needed for pain and discomfort. 2. Follow-up with your primary care provider or SOCK FOLDER as discussed. 3. Return to the ED as needed and as discussed. Definitive disposition and diagnosis as appropriate pending reevaluation and review of above. lower abd Pain Score (Numeric/FACES): 3 - Related Data Allergies Allergy/AdvReac Type Severity Reaction Status Date / Time morphine Allergy Vomiting Verified 11/18/18 14:02 Home Meds: Home Meds . [No Known Home Meds] 11/18/18 [History] Past Medical History HEENT History: Reports: None Cardiovascular History: Reports: None Respiratory History: Reports: Asthma Gastrointestinal History: Reports: None Genitourinary History: Reports: None SOCK FOLDER History: Reports: , Spontaneous Other SOCK FOLDER History: false Musculoskeletal History: Reports: None Neurological History: Reports: None Psychiatric History: Reports: Anxiety Endocrine/Metabolic History: Reports: None Hematologic History: Reports: None Immunologic History: Reports: None Oncologic (Cancer) History: Reports: None Dermatologic History: Reports: None - Infectious Disease History Infectious Disease History: Reports: None - Past Surgical History Head Surgeries/Procedures: Reports: None HEENT Surgical History: Reports: Tonsillectomy Cardiovascular Surgical History: Reports: None GI Surgical History: Reports: None Female Surgical History: Reports: D&C Endocrine Surgical History: Reports: None Neurological Surgical History: Reports: None Musculoskeletal Surgical History: Reports: None Oncologic Surgical History: Reports: Other (See Below) Social & Family History - Family History Family Medical History: Noncontributory - Tobacco Use Smoking Status *Q: Current Every Day Smoker Years of Tobacco use: 3 Packs/Tins Daily: 0.5 - Caffeine Use Caffeine Use: Reports: Soda - Recreational Drug Use Recreational Drug Use: No - Living Situation & Occupation Living situation: Reports: Single Occupation: Employed ED ROS GENERAL - Review of Systems Review Of Systems: ROS reveals no pertinent complaints other than HPI. ED EXAM - Physical Exam Exam: See Below (See dictation) Course - Vital Signs Last Recorded V/S: Last Vital Signs Temp 37.0 C 11/18/18 14:02 Pulse 83 11/18/18 14:02 Resp 18 11/18/18 14:02 BP 134/91 H 11/18/18 14:02 Pulse Ox 98 11/18/18 14:02 - Orders/Labs/Meds Labs: Laboratory Tests 11/18/18 11/18/18 11/18/18 Range/Units 14:00 14:00 14:00 WBC 7.34 (4.0-11.0) K/uL RBC 5.05 (4.30-5.90) M/uL Hgb 14.7 (12.0-16.0) g/dL Hct 43.7 (36.0-46.0) % MCV 86.5 (80.0-98.0) fL MCH 29.1 (27.0-32.0) pg MCHC 33.6 (31.0-37.0) g/dL RDW Std Deviation 41.0 (28.0-62.0) fl RDW Coeff of Sameer 13 (11.0-15.0) % Plt Count 233 (150-400) K/uL MPV 13.50 H (7.40-12.00) fL Neut % (Auto) 67.5 (48.0-80.0) % Lymph % (Auto) 25.2 (16.0-40.0) % [place] % (Auto) 4.4 (0.0-15.0) % Eos % (Auto) 2.5 (0.0-7.0) % Baso % (Auto) 0.4 (0.0-1.5) % Neut # (Auto) 5.0 (1.4-5.7) K/uL Lymph # (Auto) 1.9 (0.6-2.4) K/uL [place] # (Auto) 0.3 (0.0-0.8) K/uL Eos # (Auto) 0.2 (0.0-0.7) K/uL Baso # (Auto) 0.0 (0.0-0.1) K/uL Nucleated RBC % 0.0 /100WBC Nucleated RBCs # 0 K/uL HCG, Quant < 1.0 mIU/mL Urine Color Urine Appearance Urine pH (5.0-8.0) Ur Specific [place] (1.001-1.035) Urine Protein (NEGATIVE) mg/dL Urine Glucose (UA) (NEGATIVE) mg/dL Urine Ketones (NEGATIVE) mg/dL Urine Occult Blood (NEGATIVE) Urine Nitrite (NEGATIVE) Urine Bilirubin (NEGATIVE) Urine Urobilinogen (<2.0) EU/dL Ur Leukocyte Esterase (NEGATIVE) Urine RBC (0-2/HPF) Urine WBC (0-5/HPF) Ur Epithelial Cells (NONE-FEW) Urine Bacteria (NEGATIVE) Urine HCG, Qual (NEGATIVE) Blood Type A POSITIVE 11/18/18 11/18/18 Range/Units 14:10 14:36 WBC (4.0-11.0) K/uL RBC (4.30-5.90) M/uL Hgb (12.0-16.0) g/dL Hct (36.0-46.0) % MCV (80.0-98.0) fL MCH (27.0-32.0) pg MCHC (31.0-37.0) g/dL RDW Std Deviation (28.0-62.0) fl RDW Coeff of Sameer (11.0-15.0) % Plt Count (150-400) K/uL MPV (7.40-12.00) fL Neut % (Auto) (48.0-80.0) % Lymph % (Auto) (16.0-40.0) % [place] % (Auto) (0.0-15.0) % Eos % (Auto) (0.0-7.0) % Baso % (Auto) (0.0-1.5) % Neut # (Auto) (1.4-5.7) K/uL Lymph # (Auto) (0.6-2.4) K/uL [place] # (Auto) (0.0-0.8) K/uL Eos # (Auto) (0.0-0.7) K/uL Baso # (Auto) (0.0-0.1) K/uL Nucleated RBC % /100WBC Nucleated RBCs # K/uL HCG, Quant mIU/mL Urine Color YELLOW Urine Appearance CLEAR Urine pH 6.0 (5.0-8.0) Ur Specific [place] 1.020 (1.001-1.035) Urine Protein NEGATIVE (NEGATIVE) mg/dL Urine Glucose (UA) NEGATIVE (NEGATIVE) mg/dL Urine Ketones NEGATIVE (NEGATIVE) mg/dL Urine Occult Blood LARGE H (NEGATIVE) Urine Nitrite NEGATIVE (NEGATIVE) Urine Bilirubin NEGATIVE (NEGATIVE) Urine Urobilinogen 0.2 (<2.0) EU/dL Ur Leukocyte Esterase NEGATIVE (NEGATIVE) Urine RBC 18-22 (0-2/HPF) Urine WBC 0-2 (0-5/HPF) Ur Epithelial Cells MANY (NONE-FEW) Urine Bacteria FEW (NEGATIVE) Urine HCG, Qual NEGATIVE (NEGATIVE) Blood Type Meds: Medications Discontinued Medications Generic Name Dose Route Start Last Admin Trade Name Freq PRN Reason Stop Dose Admin Sodium Chloride 1,000 mls @ 999 mls/hr 11/18/18 14:27 11/18/18 14:34 Normal Saline IV 11/18/18 15:27 Not Given STAT ONE Departure - Departure Time of Disposition: 15:41 Disposition: Home, Self-Care 01 Clinical Impression: Abnormal uterine bleeding - Discharge Information Referrals: PCP,None [Primary Care Provider] - Forms: ED Department Discharge Additional Instructions: The following information is given to patients seen in the emergency department who are being discharged to home. This information is to outline your options for follow-up care. We provide all patients seen in our emergency department with a follow-up referral. The need for follow-up, as well as the timing and circumstances, are variable depending upon the specifics of your emergency department visit. If you don't have a primary care physician on staff, we will provide you with a referral. We always advise you to contact your personal physician following an emergency department visit to inform them of the circumstance of the visit and for follow-up with them and/or the need for any referrals to a consulting specialist. The emergency department will also refer you to a specialist when appropriate. This referral assures that you have the opportunity for follow-up care with a specialist. All of these measure are taken in an effort to provide you with optimal care, which includes your follow-up. Under all circumstances we always encourage you to contact your private physician who remains a resource for coordinating your care. When calling for follow-up care, please make the office aware that this follow-up is from your recent emergency room visit. If for any reason you are refused follow-up, please contact the [facility] Emergency Department at and asked to speak to the emergency department charge nurse. [facility] [address] [place] [id number] [place] [address] 1. You can alternate Tylenol and ibuprofen as needed for pain and discomfort. 2. Follow-up with your primary care provider or SOCK FOLDER as discussed. 3. Return to the ED as needed and as discussed.
--- NOTE | 2018-11-18 15:35 | US ---
EXAMINATION: Transvaginal pelvic ultrasound HISTORY: Bleeding COMPARISON: 04/09/2018 TECHNIQUE: Grayscale, color Doppler, and spectral Doppler imaging obtained transvaginally. FINDINGS: The uterus is normal in size, contour, and echogenicity without a focal mass. Endometrial stripe thickness is normal. No significant free pelvic fluid. Both the left and right ovaries are normal in size, contour, and echogenicity demonstrating normal color and spectral Doppler flow. Small follicles are noted. IMPRESSION: Grossly unremarkable pelvic ultrasound.
[2018-11-18 15:57] VITALS: BP 132/78
== END 2018-11-18 15:59 | disposition home or self-care (01) ==
LOC: MW.ED 13:42
DX: N93.9 Abnormal uterine and vaginal bleeding, unspecified (principal); F17.210 Nicotine dependence, cigarettes, uncomplicated; Z88.5 Allergy status to narcotic agent
CPT/HCPCS: 36415; 76830; 76830-26; 81001; 81025; 84702; 85025; 86900; 86901; 99284-25

== ENCOUNTER 2022-10-02 05:00 | Inpatient (IN) | payer MEDICAID ==
[2022-10-02] MEDS ORDERED: Butorphanol 1 MG/ML SDV IVPUSH PRN (05:53)
[2022-10-02] MEDS ORDERED: Terbutaline 1 MG/ML SDV SUBCUT PRN (05:53)
[2022-10-02] MEDS ORDERED: Misoprostol 200 MCG Tab PO PRN (05:53)
[2022-10-02] MEDS ORDERED: Sodium Chloride 0.9% 10 ML Syringe FLUSH PRN (05:53)
[2022-10-02] MEDS ORDERED: Carboprost Tromethamine 250 MCG/1 ML Amp IM PRN (05:53)
[2022-10-02] MEDS ORDERED: Sodium Chloride 0.9% 20 ML SDV IV PRN (05:53)
[2022-10-02] MEDS ORDERED: Tranexamic Acid 1,000 MG in Sodium Chloride 0.9% 100 ML IV PRN ×2 (05:53→13:55)
[2022-10-02] MEDS ORDERED: Lidocaine 1% 50 ML MDV INJECT PRN (05:53)
[2022-10-02] MEDS ORDERED: Methylergonovine 0.2 MG/1 ML Amp IM PRN ×2 (05:53→13:55)
[2022-10-02] MEDS ORDERED: Water For Irrigation,Sterile 1,000 ML Container IRR PRN (05:53)
[2022-10-02] MEDS ORDERED: Sodium Chloride 0.9% 2.5 ML Syringe FLUSH PRN (05:53)
[2022-10-02] MEDS ORDERED: Oxytocin/0.9 % Sodium Chloride 30 UNIT/500 ML BAG IV SCH ×2 (06:00)
[2022-10-02] MEDS: Lactated Ringers 1,000 ML IV SCH ×2 (09:59→11:49)
[2022-10-02] MEDS ORDERED: Ropivacaine/PF 400 MG/200 ML PCA ONE (10:34)
[2022-10-02] MEDS ORDERED: Phenylephrine HCl In 0.9% NaCl 1 MG/10 ML Vial IVPUSH PRN (10:59)
[2022-10-02] MEDS ORDERED: ePHEDrine 50 MG/ML SDV IVPUSH PRN (10:59)
[2022-10-02] MEDS ORDERED: Ropivacaine HCl/PF 400 MG in Premix Bag 1 BAG EPIDUR SCH (11:00)
[2022-10-02] MEDS ORDERED: ALBUTEROL IH PRN (13:51)
[2022-10-02] MEDS ORDERED: Acetaminophen 500 MG Tab PO PRN (13:55)
[2022-10-02] MEDS ORDERED: Bisacodyl 10 MG Supp RECTAL PRN (13:55)
[2022-10-02] MEDS ORDERED: Ibuprofen 400 MG Tab PO PRN (13:55)
[2022-10-02] MEDS ORDERED: Docusate Sodium 100 MG Cap PO PRN (13:55)
[2022-10-02] MEDS ORDERED: Lanolin 100% Cream 7 GM Tube TOP PRN (13:55)
[2022-10-02] MEDS: Ibuprofen 800 MG Tab PO PRN (18:27)
[2022-10-02] MEDS: Acetaminophen 500 MG Tab PO PRN (18:29)
[2022-10-02] MEDS: Benzocaine/Menthol 20%-0.5% Spray 78 GM Cannister TOP PRN ×2 (18:30→22:23)
[2022-10-02] MEDS: Witch Hazel Medicated Pads 40/Jar TOP PRN ×2 (18:31→22:22)
[2022-10-03] MEDS: Ibuprofen 800 MG Tab PO PRN ×2 (01:37→08:25)
[2022-10-03] MEDS: Acetaminophen 500 MG Tab PO PRN ×2 (01:37→11:56)
[2022-10-03 07:57] VITALS: BP 117/72; PULSE 102
[2022-10-03] MEDS ORDERED: PSYLLIUM HUSK 0.52 GM PO SCH (09:00)
[2022-10-03] MEDS ORDERED: Prenatal Multivitamin with Calcium/Folic Acid/Iron Tab PO SCH (09:00)
== END 2022-10-03 16:20 | disposition home or self-care (01) | DRG 807 ==
LOC: MW.OBCHECK 05:00 → MW.OB 05:02 → MW.OBCHECK 05:53 → OBSVTOIN 13:22 → MW.OB 23:55
PROVIDERS: ADMIT Obstetrics & Gynecology; ATTEND Obstetrics & Gynecology
PROC: 10E0XZZ Delivery of Products of Conception, External Approach (ICD-10-PCS; principal; 2022-10-02)
PROC: 3E033VJ Introduction of Other Hormone into Peripheral Vein, Percutaneous Approach (ICD-10-PCS; 2022-10-02)
PROC: 0HQ9XZZ Repair Perineum Skin, External Approach (ICD-10-PCS; 2022-10-02)
PROC: 3E0R3BZ Introduction of Anesthetic Agent into Spinal Canal, Percutaneous Approach (ICD-10-PCS; 2022-10-02)
PROC: 00HU33Z Insertion of Infusion Device into Spinal Canal, Percutaneous Approach (ICD-10-PCS; 2022-10-02)
PROC: 10907ZC Drainage of Amniotic Fluid, Therapeutic from Products of Conception, Via Natural or Artificial Opening (ICD-10-PCS; 2022-10-02)
DX: O99.52 Diseases of the respiratory system complicating childbirth (principal); Z37.0 Single live birth; O70.0 First degree perineal laceration during delivery; J45.909 Unspecified asthma, uncomplicated; Z3A.39 39 weeks gestation of pregnancy
CPT/HCPCS: 36415; 51702; 59025; 59409; 82803; 85014; 85018; 85027; 86592; 86850; 86900; 86901; A9270-GY; J2590; J2795; J7120; U0002